=== PATIENT | male | born 1965 | race Caucasian/White ===

== ENCOUNTER → 2019-05-05 06:03 | Outpatient (CLI) | payer OTHER, SELFPAY ==
[2019-03-20 14:39] VITALS: BMI 28.7
[2019-05-05 07:37] LABS: AST(SGOT) 22 U/L (15-37); Alanine Aminotransfer ALT/SGPT 39 U/L (16-61); Albumin, Serum 4.2 g/dL (3.2-5.0); Alkaline Phosphatase 97 U/L (45-117); Anion Gap 8 (5-15); BUN 18 mg/dL (7-18); BUN/Creat Ratio 15.4 RATIO (10-20); Bilirubin, Direct 0.23 mg/dL (0.00-0.30); Calcium,Total 9.2 mg/dL (8.5-10.1); Chloride 104 mmol/L (98-107); Cholesterol 156 mg/dL (200); Creatinine, Serum 1.17 mg/dL (0.70-1.30); EST Glomerular Filtration Rate 69 mL/min (>60); Est Glom Filt Rate - Afr Amer 84 mL/min (>60); Globulin 3.2 g/dL (2.2-4.2); Glucose 90 mg/dL (74-106); High Density Lipoprotein 50 mg/dL; Potassium 4.1 mmol/L (3.5-5.1); Protein, Total 7.4 g/dL (6.4-8.2); Sodium Level 142 mmol/L (136-145); Triglycerides 168 mg/dL; Very Low Density Lipoprotein 34 mg/dL (5-40)
== END ==
PROVIDERS: Referring Provider Internal Medicine Cardiovascular Disease; Visit Provider Internal Medicine Cardiovascular Disease
DX: E78.2 Mixed hyperlipidemia (principal)
CPT/HCPCS: 36415; 80048; 80061; 80076

== ENCOUNTER → 2020-08-25 06:44 | Outpatient (CLI) | payer OTHER, SELFPAY ==
[2020-08-06 15:32] VITALS: BMI 28.4
--- NOTE | 2020-08-25 06:49 | ECHOCS_ITS ---
Procedure This was a 2D Doppler, Color Flow transthoracic echocardiogram. The study was technically difficult. Contrast injection was performed. Exam performed in department. Left Ventricle Based upon the 2D echocardiographic and contrast enhanced images obtained there appears to be grossly normal left ventricular size, wall motion, and systolic function. The estimated ejection fraction is 55 %. Transmitral doppler flow suggestive of impaired relaxation of left ventricle. Right Ventricle Normal RV size. Normal systolic function. Atria Normal left atrium. Normal right atrium. No doppler evidence for ASD. Mitral Valve There is no mitral annular calcification. Normal mitral valve. Tricuspid Valve Normal tricuspid valve. Aortic Valve Trisinus/trileaflet aortic valve. Normal aortic valve. Trivial aortic valve insufficiency. Pulmonic Valve The pulmonic valve is not well visualized. Great Vessels Mildly dilated aortic root. Pericardium/Pleural No pericardial effusion. Medication Diluted definity 2ml given slow IV push to enhance endocardial definition. MMode/2D Measurements & Calculations RVDd: 3.5 cm Ao root diam: 4.4 cm LAV(MOD-bp): 37.4 ml LAV(MOD-bp) Indexed: 17.5 ml/m2 LAV(MOD-sp2): 33.9 ml LAV(MOD-sp4): 37.6 ml LA dimension(2D): 3.5 cm LA A4 area: 15.0 cm2 RA A4 area: 14.1 cm2 Doppler Measurements & Calculations MV E max mike: 41.1 cm/sec Lat Peak E' Mike: 7.0 cm/sec Med Peak E' Mike: 5.6 cm/sec MV A max mike: 76.2 cm/sec E/E' lat: 5.8 E/E' med: 7.4 MV E/A: 0.54 Ao V2 max: 114.3 cm/sec LV V1 max: 95.1 cm/sec PA V2 max: 81.4 cm/sec Ao max P.2 mmHg LV V1 max P.6 mmHg Ao V2 mean: 83.2 cm/sec Ao mean P.0 mmHg Ao V2 VTI: 22.0 cm Interpretation Summary The study was technically difficult. Contrast injection was performed. Based upon the 2D echocardiographic and contrast enhanced images obtained there appears to be grossly normal left ventricular size, wall motion, and systolic function. The estimated ejection fraction is 55 %. Trivial aortic valve insufficiency. Mildly dilated aortic root. Transmitral doppler flow suggestive of impaired relaxation of left ventricle Ordering Physician: Rhys Moody Referring Physician: Rhys Moody
--- NOTE | 2020-08-25 09:35 | STRESSREP_ITS ---
Stress Test Report Date: 08-25-2020 Procedure: Exercise tolerance test/imaging study Indications: Chest pain; CAD; PCI Consent: Per the patient Procedure: The patient exercised on a Oscar protocol for 11 minutes completing Stage III and 2 minutes of Stage IV achieving a peak heart rate of 162 bpm (97% predicted maximal heart rate) with a peak blood pressure 166/74 mmHg and a peak MET capacity of 13 METs. The baseline ECG demonstrated normal sinus rhythm. The peak exercise ECG demonstrated no obvious ECG changes. There was a rare PVC during recovery. The functional capacity was considered good. There was no complaint of chest discomfort during exercise or recovery. The examination was discontinued secondary to dyspnea. Impression: 1. Technically adequate (percent predicted maximal heart rate greater than 85%) exercise tolerance test 2. Peak exercise ECG with no obvious ECG changes 3. There was a rare PVC during recovery 4. Nuclear images pending Myocardial perfusion imaging study: Technique: The patient was injected with 14.1 mCi of technetium 99m Cardiolite and subsequently rest SPECT Cardiolite nuclear imaging was obtained in the horizontal long, vertical long, and short axis views. The patient exercised on a Oscar protocol for 11 minutes completing Stage III and 2 minutes of Stage IV achieving a peak heart rate of 162 bpm (97% predicted maximal heart rate) with a peak blood pressure 166/74 mmHg and a peak MET capacity of 13 METs. The patient was injected with 43.9 mCi of technetium 99m Cardiolite and subsequently stress SPECT Cardiolite nuclear imaging was obtained in the horizontal long, vertical long, and short axis views. A gated Cardiolite study at peak stress was obtained. Interpretation: Rest and stress SPECT Cardiolite nuclear imaging status post realignment, normalization, and attenuation correction, demonstrates the appearance at rest of subtle diminished tracer uptake near the apical segments which appear to be less prominent and/or normalize following stress. There is end systolic thickening and brightening. The gated Cardiolite study demonstrates myocardial thickening and inward wall motion. The reported LVEF is 66%. Impression: 1. Rest and stress SPECT Cardiolite nuclear imaging demonstrate myocardial perfusion changes compatible with the effects of physiologic apical thinning and/or shifting soft tissue attenuation/artifact with no myocardial perfusion changes considered diagnostic for associated stress-induced myocardial ischemia. 2. The gated Cardiolite study reports an LVEF of 66%. This note was generated with [employer] software. It may contain incorrect words, spelling, and punctuation that were not noted in checking the note before signing.
== END ==
PROVIDERS: Referring Provider Internal Medicine Cardiovascular Disease; Visit Provider Internal Medicine Cardiovascular Disease
DX: R07.9 Chest pain, unspecified (principal); I25.10 Atherosclerotic heart disease of native coronary artery without angina pectoris; I10 Essential (primary) hypertension; E78.2 Mixed hyperlipidemia; Z95.5 Presence of coronary angioplasty implant and graft
CPT/HCPCS: 78452; 93017; 93306; A9500; Q9957; A4216; C8929

== ENCOUNTER → 2020-09-02 12:43 | Outpatient (CLI) | payer OTHER, SELFPAY ==
[2020-08-06 15:32] VITALS: BMI 28.4
--- NOTE | 2020-09-02 12:48 | CT_ITS ---
STUDY: CT CHEST WITH CONTRAST REASON FOR EXAM: Male, 55 years old. DILATED AORTIC ROOT, F/U FROM STRESS TEST RADIATION DOSAGE (If Supplied By Facility): CTDIvol = ( 13.86 ) mGy, DLP = ( 522.20 ) mGycm TECHNIQUE: Transaxial imaging was performed following intravenous administration of IV 100ML ISOVUE 300. Multiplanar coronal and sagittal images were reformatted. Individualized dose optimization techniques were used for this CT. COMPARISON: None. FINDINGS: The lungs are normal. There is no demonstrated pleural abnormality. Normal heart and pericardium. Normal mediastinum. Normal hilar regions. Normal enhanced pulmonary arteries. There is dilatation of the aortic root with a transverse dimension of 46.8 mm. There are multi-level degenerative changes of the thoracic spine. Fatty infiltration of the liver. CT/Chest WITH Contrast IMPRESSION: Dilatation of the aortic root with a transverse dimension of 46.8 mm. Electronically Signed: Talha Chavez, at 14:15 EST , Service support ,
== END ==
PROVIDERS: Visit Provider Internal Medicine Cardiovascular Disease
DX: I77.810 Thoracic aortic ectasia (principal); I25.10 Atherosclerotic heart disease of native coronary artery without angina pectoris; I10 Essential (primary) hypertension; E78.2 Mixed hyperlipidemia; Z95.5 Presence of coronary angioplasty implant and graft
CPT/HCPCS: 71260; Q9967

== ENCOUNTER → 2021-01-08 08:05 | Outpatient (CLI) | payer OTHER, SELFPAY ==
[2020-08-06 15:32] VITALS: BMI 28.4
[2021-01-08 08:54] LABS: AST(SGOT) 16 U/L (15-37); Alanine Aminotransfer ALT/SGPT 30 U/L (16-61); Albumin, Serum 3.7 g/dL (3.2-5.0); Alkaline Phosphatase 87 U/L (45-117); Anion Gap 6 (5-15); BUN 20 mg/dL (7-18); BUN/Creat Ratio 18.9 RATIO (10-20); Bilirubin, Direct 0.21 mg/dL (0.00-0.30); Calcium,Total 8.9 mg/dL (8.5-10.1); Chloride 107 mmol/L (98-107); Cholesterol 136 mg/dL (200); Creatinine, Serum 1.06 mg/dL (0.70-1.30); EST Glomerular Filtration Rate 77 mL/min (>60); Est Glom Filt Rate - Afr Amer 93 mL/min (>60); Globulin 3.1 g/dL (2.2-4.2); Glucose 104 mg/dL (74-106); High Density Lipoprotein 51 mg/dL; PSA,Total - Annual Screen 0.38 ng/mL (0.00-4.00); Potassium 4.3 mmol/L (3.5-5.1); Protein, Total 6.8 g/dL (6.4-8.2); Sodium Level 141 mmol/L (136-145); Triglycerides 184 mg/dL; Very Low Density Lipoprotein 37 mg/dL (5-40)
== END ==
DX: I25.10 Atherosclerotic heart disease of native coronary artery without angina pectoris (principal); E78.2 Mixed hyperlipidemia; Z12.5 Encounter for screening for malignant neoplasm of prostate
CPT/HCPCS: 36415; 80048; 80061; 80076; 84153; G0103

== ENCOUNTER → 2021-02-16 07:42 | Outpatient (CLI) | payer OTHER, SELFPAY ==
[2021-02-02 15:58] VITALS: BMI 28.4
--- NOTE | 2021-02-16 07:43 | AAAS_ITS ---
Reason For Study: Aortic Root Dilation Aorta Measurements Aorta Doppler Measurements Proximal aorta measures1.58 x 1.56cm. in cross- Peak systolic flow velocities within the proximal sectional axis. aorta measure 69.5 cm/sec. Proximal aorta measures1.63cm. in longitudinal Peak systolic flow velocities within the mid aorta axis. measure 66.7 cm/sec. Mid aorta measures1.72 x 1.72cm. in cross- Peak systolic flow velocities within the distal sectional axis. aorta measure 76.9 cm/sec. Mid aorta measures1.75cm. in longitudinal axis. Distal aorta measures1.46 x 1.41cm. in cross- sectional axis. Distal aorta measures1.46cm. in longitudinal axis. Left Iliac Artery Left iliac artery measures 1.08 x 1.09 cm. in the cross-sectional axis. Left iliac artery measures 1.08 cm. in the longitudinal axis. Peak systolic velocity in the left iliac artery measures 84.2 cm/sec. Right Iliac Artery Right iliac artery measures 0.98 cm. in the longitudinal axis. Right iliac artery measures 0.98 x 0.96 cm. in the cross-sectional axis. Peak systolic velocity in the right iliac artery measures 75.7 cm/sec. Procedure Aorta IVC Iliac vasculature or bypass grafts 04772. The exam was diagnostic. Exam performed in department. VL/AAA Screening Interpretation Summary Maximal abdominal aortic dimensions in the mid abdominal aorta measuring 1.72 x 1.72 cm in diameter. Aortic Doppler flow velocities are normal Left common iliac is normal at 1.08 x 1.09 cm in diameter Right common iliac is normal at 0.98 x 0.96 cm in diameter. Bilateral common iliac Doppler flow velocities are normal Ordering Physician: Jony Orosco Referring Physician: Adarsh Smith Performed By: Vanessa Sheikh RVT and Student
--- NOTE | 2021-02-16 07:43 | CT_ITS ---
STUDY: CT CHEST WITH CONTRAST REASON FOR EXAM: Male, 55 years old. Aortic root dilation RADIATION DOSAGE (If Supplied By Facility): CTDIvol = ( 15.26 ) mGy, DLP = ( 583.46 ) mGycm TECHNIQUE: Transaxial imaging was performed following intravenous administration of IV 100mL Isovue-300. Multiplanar coronal and sagittal images were reformatted. Individualized dose optimization techniques were used for this CT. COMPARISON: Comparison is made with prior study dated 09/02/2020. FINDINGS: The lungs are normal. There is no demonstrated pleural abnormality. There are calcifications of the coronary arteries. Normal mediastinum. Normal hilar regions. Normal enhanced pulmonary arteries. Once again, there is dilatation of the aortic root of the ascending thoracic aorta with a transverse dimension of 46 mm. This is unchanged. There are degenerative changes of the thoracic spine. There is no demonstrated abnormality of the visualized upper abdomen. CT/Chest WITH Contrast IMPRESSION: Stable examination. Electronically Signed: Talha Chavez MD at 8:53 EDT , Service support ,
== END ==
PROVIDERS: Referring Provider Nurse Practitioner Family; Visit Provider Nurse Practitioner Family
DX: I77.810 Thoracic aortic ectasia (principal); I10 Essential (primary) hypertension; E78.2 Mixed hyperlipidemia; I25.10 Atherosclerotic heart disease of native coronary artery without angina pectoris; Z95.5 Presence of coronary angioplasty implant and graft
CPT/HCPCS: 71260; 76706; Q9967

== ENCOUNTER → 2021-08-15 09:21 | Outpatient (CLI) | payer OTHER, SELFPAY ==
[2021-08-15 10:41] LABS: AST(SGOT) 22 U/L (15-37); Alanine Aminotransfer ALT/SGPT 49 U/L (16-61); Albumin, Serum 3.9 g/dL (3.2-5.0); Alkaline Phosphatase 92 U/L (45-117); Bilirubin, Direct 0.16 mg/dL (0.00-0.30); Cholesterol 154 mg/dL (200); Globulin 3.3 g/dL (2.2-4.2); High Density Lipoprotein 48 mg/dL; Protein, Total 7.2 g/dL (6.4-8.2); Triglycerides 194 mg/dL; Very Low Density Lipoprotein 39 mg/dL (5-40)
== END ==
PROVIDERS: Referring Provider Internal Medicine Cardiovascular Disease; Visit Provider Internal Medicine Cardiovascular Disease
DX: E78.00 Pure hypercholesterolemia, unspecified (principal)
CPT/HCPCS: 36415; 80061; 80076

== ENCOUNTER 2021-11-04 07:44 | Emergency (ER) | payer OTHER, SELFPAY ==
[2021-11-04 07:45] VITALS: BP 134/95; PULSE 91; RESP 18; TEMP 36.6; O2SAT 98; BMI 29.2
--- NOTE | 2021-11-04 08:18 | CT_ITS ---
STUDY: CT ABDOMEN AND PELVIS WITHOUT CONTRAST REASON FOR EXAM: Male, 56 years old. Bilateral flank pain and burning sensation with urination. RADIATION DOSAGE (If Supplied By Facility): CTDIvol = ( 11.25 ) mGy, DLP = ( 624.04 ) mGycm TECHNIQUE: Transaxial images were obtained from the dome of the diaphragm to the symphysis pubis without oral contrast, and without intravenous contrast. Sagittal and coronal images were reconstructed. Individualized dose optimization techniques were used for this CT. COMPARISON: None. FINDINGS: The visualized lung bases are unremarkable. Coronary artery stents noted. Normal liver. Normal gallbladder and extrahepatic biliary system. Normal spleen. Normal pancreas. Normal bilateral adrenal glands. Punctate nonobstructing calculi of the right kidney. No hydronephrosis or ureteral calculi. Normal visualized stomach. Normal small intestine. Normal colon. There is non-visualization of the appendix. Scattered atherosclerosis of the abdominal aorta. Normal inferior vena cava. Normal retroperitoneum. Normal urinary bladder. There are prostatic calcifications. Normal abdominal wall. Normal osseous structures. CT/Abdomen/Pelvis without Cont IMPRESSION: Punctate right nephrolithiasis without hydronephrosis/obstruction. Electronically Signed: Owen Unger MD ([place]) at 8:53 EDT Reading Location ID and State: [place] , Service support ,
--- NOTE | 2021-11-04 08:19 | EDS_ITS ---
HPI History of Present Illness Chief Complaint: Flank Pain Narrative Narrative: Patient presents with 5-day history of some dysuria, fevers, and bilateral flank pain. He does have a history of urethral strictures. He also has a history of kidney stones. He has some intermittent suprapubic abdominal pain. He also has some flank pain. No upper abdominal pain. No cough or congestion. He has noticed some loose stools over the past week but no more than 1 or 2 episodes per day of bowel movements. No nausea or vomiting. [facility] Medical History (Updated 11/04/21 @ 10:[address] Rhys Martinez MD) Atherosclerotic heart disease of [place] coronary artery without angina pectoris Degenerative disc disease Essential hypertension Hiatal hernia Mixed hyperlipidemia Presence of stent in coronary artery (~10/24/18) Schatzki's ring Home Medications aspirin 81 mg tablet,delayed release 81 mg PO DAILY 03/19/19 [History Last Taken 11/03/21] atorvastatin 40 mg tablet 40 mg PO DAILY #90 tab 11/22/20 [Rx Last Taken 11/03/21] metoprolol succinate 50 mg tablet,extended release 24 hr 50 mg PO DAILY #90 tab 11/22/20 [Rx Last Taken 11/03/21] lisinopril 10 mg tablet 10 mg PO DAILY #90 tab 02/18/21 [Rx Last Taken 11/03/21] oxycodone-acetaminophen [Percocet] 1 tab PO Q8H PRN 3 Days #10 tab 11/04/21 [Rx Last Taken Unknown] sulfamethoxazole-trimethoprim [Bactrim DS] 1 tab PO BID #14 tab 11/04/21 [Rx Last Taken Unknown] Allergy/AdvReac Type Severity Reaction Status Date / Time No Known Allergies Allergy Verified 11/04/21 07:47 Family History Grandmother Heart disease Uncle Heart disease Grandfather CVA (cerebral vascular accident) Father Hypertension CVA (cerebral vascular accident) Grandmother CHF (congestive heart failure) Surgical History History of appendectomy History of discectomy History of tonsillectomy Presence of coronary angioplasty implant and graft (~10/24/18) Social History Smoking Status: Former smoker alcohol intake: never substance use type: does not use caffeine: Yes Type: tea Number of servings: 1 ROS ROS ED ROS Narrative Past medical history: Reviewed, consistent with hypertension, hyper lipidemia, history of coronary artery disease. Urethral strictures. Medications: Reviewed Social history: Noncontributory Review of systems: All systems negative except as indicated General: Fevers over the past week Eyes: No visual changes ENT: No upper airway congestion, normal voice Neck: No neck pain Cardiovascular: No chest pain Respiratory: No shortness of breath or cough Gastrointestinal: Intermittent suprapubic pain. Genitourinary: As in HPI Musculoskeletal: Denies myalgias no difficulty with ambulation Skin: No rash Neurological: No memory loss, confusion or any focal weakness Psych: No recent behavioral changes Hematologic: No easy bleeding or easy bruising EXAM Physical Exam Const Vital Signs: 11/04/21 07:45 Temperature 97.8 F Temperature Source Temporal Pulse Rate 91 Respiratory Rate 18 Blood Pressure 134/95 H Blood Pressure Mean 108 Pulse Ox 98 Oxygen Delivery Method Room Air MDM MDM MDM Narrative Medical decision making narrative: Patient has a work-up consistent with a very small kidney stone that is obstructive. At this time the urinalysis is unremarkable white count is 10. He has normal vitals, I am unsure about the cause of his fever over the past week however that seems to have improved, he did seem to have some GI symptoms so he may have had a gastroenteritis regardless he has significantly improved. To be cautious I will start antibiotics especially there is obstructive uropathy. I will refer to urology. If anything changes the patient is to return. Lab Data Labs: Laboratory Results - last 24 hr 11/04/21 11/04/21 11/04/21 08:15 08:15 09:10 WBC 10.7 RBC 4.79 Hgb 15.5 Hct 45.0 MCV 93.9 MCH 32.4 H MCHC 34.4 RDW Std Deviation 42.6 RDW Coeff of [place] 12.3 Plt Count 200 MPV 9.4 Immature Gran % (Auto) 0.400 Neut % (Auto) 93.5 H Lymph % (Auto) 1.9 L [place] % (Auto) 3.1 Eos % (Auto) 0.8 Baso % (Auto) 0.3 Absolute Neuts (auto) 10.0 H Absolute Lymphs (auto) 0.20 L Nucleated RBC % 0 Sodium 138 Potassium 4.6 Chloride 107 Carbon Dioxide 29.0 Anion Gap 2 L BUN 25 H Creatinine 1.20 Estim Creat Clear Calc 74.08 Est GFR (MDRD) Af Amer 81 Est GFR (MDRD) Non-Af 67 BUN/Creatinine Ratio 20.8 H Glucose 132 H Calcium 8.9 Total Bilirubin 1.00 AST 30 ALT 75 H Alkaline Phosphatase 106 Total Protein 7.3 Albumin 3.9 Globulin 3.4 Albumin/Globulin Ratio 1.1 Urine Color Yellow Urine Clarity Clear Urine pH 5.0 Ur Specific [place] 1.020 Urine Protein 15 H Urine Glucose (UA) Normal Urine Ketones Negative Urine Occult Blood Negative Urine Nitrite Negative Urine Bilirubin Negative Urine Urobilinogen 1 H Ur Leukocyte Esterase Negative Urine RBC 0 SEEN Urine WBC 0 SEEN Ur Squamous Epith Cells 0-5 SEEN Urine Bacteria 0 SEEN Urine Mucus 0 SEEN Radiography Diagnostic Testing: Clinical Impression(s) from Imaging Studies Abdomen/Pelvis CT 11/04/21 08:18 IMPRESSION: Punctate right nephrolithiasis without hydronephrosis/obstruction. Electronically Signed: Owen Unger MD ([place]) at 8:53 EDT Reading Location ID and State: [address] [place] [address] , Service support , Discharge Plan Triage Chief Complaint: Flank Pain ED Provider: Rhys Martinez Dx/Rx/DC Orders Clinical Impression: Kidney calculi Instructions: Treating Kidney Stones ... Prescriptions: New sulfamethoxazole-trimethoprim [Bactrim DS] 800-160 mg tablet 1 tab PO BID Qty: 14 RF: 0 oxycodone-acetaminophen [Percocet] 5-325 mg tablet 1 tab PO Q8H PRN (Reason: pain) 3 Days Qty: 10 RF: 0 No Action aspirin [Adult Low Dose Aspirin] 81 mg tablet,delayed release (DR/EC) 81 mg PO DAILY RF: 0 atorvastatin 40 mg tablet 40 mg PO DAILY Qty: 90 RF: 4 metoprolol succinate 50 mg tablet extended release 24 hr 50 mg PO DAILY Qty: 90 RF: 4 lisinopril 10 mg tablet 10 mg PO DAILY Qty: 90 RF: 4 Primary Care Provider: Mahamed Smith Referrals: Mahamed Smith MD [Primary Care Provider] - 2 Days Trevon Ramirez MD [STAFF PHYSICIAN] - 2 Days Disposition Disposition: Home, Self Care
[2021-11-04] MEDS: 0.9% Normal Saline 1,000 ML 1000 ML IV (08:24)
[2021-11-04] MEDS: Ketorolac 15 MG/ML Vial IV (08:24)
[2021-11-04 08:26] LABS: Basophil# 0.03 X10^3/uL; Basophil% 0.3 % (0-1); Eosinophil# 0.08 X10^3/uL; Eosinophils% 0.8 % (0-5); Hemoglobin 15.5 g/dL (13.0-16.5); Lymphocyte % 1.9 % (19-41); Mean Corp Hgb Conc 34.4 g/dL (32-36); Mean Corpuscular Hgb 32.4 pg (27.0-32.0); Mean Corpuscular Volume 93.9 fL (80-94); Mean Platelet Vol. 9.4 fl (6.2-12.0); Monocyte# 0.33 X10^3/uL; Monocyte% 3.1 % (0-10); NRBC Flagged by Analyzer 0 % (0-5); Neutrophil # 9.97 X10^3/uL (2.7-7.7); Neutrophil % 93.5 % (47-70); POSITIVE DIFFERENTIAL YES; Platelet Count 200 K/mm3 (150-450); RBC Distribution Width CV 12.3 % (11.6-14.6); RBC Distribution Width SD 42.6 fl (35.1-43.9); Red Blood Count 4.79 M/mm3 (4.6-6.2); White Blood Count 10.7 K/mm3 (4.4-11.0)
[2021-11-04 08:29] LABS: Differential Indicated SCAN CRITERIA MET
[2021-11-04 08:47] LABS: ALB/GLOB Ratio 1.1 RATIO (0.9-2.4); AST(SGOT) 30 U/L (15-37); Alanine Aminotransfer ALT/SGPT 75 U/L (16-61); Albumin, Serum 3.9 g/dL (3.2-5.0); Alkaline Phosphatase 106 U/L (45-117); Anion Gap 2 (5-15); BUN 25 mg/dL (7-18); BUN/Creat Ratio 20.8 RATIO (10-20); Calcium,Total 8.9 mg/dL (8.5-10.1); Chloride 107 mmol/L (98-107); EST Glomerular Filtration Rate 67 mL/min (>60); Est Glom Filt Rate - Afr Amer 81 mL/min (>60); Estimated Creatinine Clearance 74.08 ml/min; Globulin 3.4 g/dL (2.2-4.2); Glucose 132 mg/dL (74-106); Potassium 4.6 mmol/L (3.5-5.1); Protein, Total 7.3 g/dL (6.4-8.2); Sodium Level 138 mmol/L (136-145)
[2021-11-04 09:23] LABS: Bacteria 0 SEEN /hpf (None Seen); Mucous, Urine 0 SEEN /hpf (<or=2+); Red Blood Cells-Urine 0 SEEN /hpf (0-5); White Blood Cells 0 SEEN /hpf (0-5)
[2021-11-04 09:24] LABS: Color, Urine Yellow (Yellow); Glucose, Dipstick Normal (Normal); Ketone-Dipstick Negative (Negative); Leukocyte Esterase-Dipstick Negative /ul (Negative); Nitrite-Dipstick Negative (Negative); Occult Blood-Urine Negative /ul (Negative); Protein-Dipstick 15 mg/dl (Negative); Urine Bilirubin Dipstick Negative (Negative); Urine Clarity Clear (Clear); Urine Urobilinogen 1 mg/dl (Normal)
[2021-11-04 09:38] LABS: Squamous Epithelial Cells - UA 0-5 SEEN /hpf (0-5)
[2021-11-04 11:08] VITALS: BP 137/71; PULSE 80; RESP 16; O2SAT 98
== END 2021-11-04 11:09 | disposition home or self-care (01) ==
PROVIDERS: Emergency Provider Emergency Medicine; Visit Provider Emergency Medicine
DX: N20.0 Calculus of kidney (principal); I25.10 Atherosclerotic heart disease of native coronary artery without angina pectoris; I10 Essential (primary) hypertension; E78.2 Mixed hyperlipidemia; Z79.82 Long term (current) use of aspirin; Z79.899 Other long term (current) drug therapy; Z87.442 Personal history of urinary calculi; Z87.891 Personal history of nicotine dependence; Z95.5 Presence of coronary angioplasty implant and graft
CPT/HCPCS: 74176; 80053; 81001; 85025; 96361; 96374; 99284; J7030; A4216

== ENCOUNTER → 2022-01-20 | Outpatient (CLI) | payer OTHER, SELFPAY ==
--- NOTE | 2022-01-20 17:52 | CT_ITS ---
STUDY: CTA CHEST REASON FOR EXAM: Male, 56 years old. Chest and back pain, possible aneurysm RADIATION DOSAGE (If Supplied By Facility): CTDIvol = ( 16.84 ) mGy, DLP = ( 479.70 ) mGycm TECHNIQUE: The examination was performed with the intravenous administration of IV 100mL Isovue-370. Post-processing of the angiographic images was performed, with multiplanar reformation and 3D reconstruction. Individualized dose optimization techniques were used for this CT. COMPARISON: None. FINDINGS: Normal enhancement of the main pulmonary artery and right and left pulmonary arteries. Normal enhancement of the bilateral peripheral pulmonary arteries. There is no demonstrated pulmonary embolism. There is aneurysmal dilatation of the ascending aorta. The transverse diameter of the ascending aorta measures 48.3 mm''s. There is no demonstrated aortic dissection. Normal heart and pericardium. There are calcifications of the coronary arteries. Normal mediastinum. Normal hilar regions. There is peribronchial thickening. The lungs are well expanded. Normal pulmonary parenchyma. Normal pleura. Normal chest wall structures. Mild degenerative changes throughout the thoracic spine. Normal visualized upper abdomen. CT/CTA Chest W/WO Contrast IMPRESSION: No demonstrated PE, or acute pulmonary process Aneurysmal dilatation of the ascending thoracic aorta at 4.8 cm. No evidence of dissection, or suspicious periaortic fluid Calcified coronary vessels Degenerative bony changes Electronically Signed: Juan Garay MD at 10:58 EDT ,
[2022-01-20 18:05] LABS: CREATININE FINGERSTICK < 0.9 mg/dL (0.70-1.30); EGFR FINGERSTICK > 60.0000 mL/min (>60)
== END | disposition home or self-care (01) ==
LOC: CT 17:49
PROVIDERS: Visit Provider Internal Medicine Cardiovascular Disease
DX: I77.810 Thoracic aortic ectasia (principal)
CPT/HCPCS: 71275; Q9967; A4216

== ENCOUNTER 2022-11-07 15:28 | Emergency (ER) | payer OTHER, SELFPAY ==
[2022-11-07 15:29] VITALS: BP 141/96; PULSE 112; RESP 18; TEMP 38; O2SAT 94; BMI 29.2
[2022-11-07 15:45] VITALS: BP 143/83; PULSE 104; RESP 18; TEMP 38; O2SAT 94
--- NOTE | 2022-11-07 15:49 | EX.ED.DYSGE1 ---
HPI History of Present Illness Chief Complaint: Fever Detail of Chief Complaint: Fever Informant: patient Narrative Narrative: Patient presents to the emergency department with complaint of a fever that started this morning. Patient states that initially he was chilled and so he checked his temperature and it was 101. Patient concerned because he had thoracic aortic aneurysm repair less than a week ago. Patient's procedure was done at the [facility]. Patient denies cough or sore throat. He denies vomiting or diarrhea. He denies rashes. He denies any drainage from his incision. Patient states he had an echocardiogram done yesterday and a CT scan of the chest today before and as far as he knows no significant abnormalities noted. Patient called his overhead irrigator office today and was instructed to come to the ER to be evaluated. Patient denies any urinary symptoms. [facility] Medical History (Updated 11/07/22 @ 19:[address] Holland Webster, ) Atherosclerotic heart disease of circle coronary artery without angina pectoris Degenerative disc disease Essential hypertension Hiatal hernia History of kidney stones Mixed hyperlipidemia Presence of stent in coronary artery (~10/24/18) Schatzki's ring Home Medications aspirin 81 mg tablet,delayed release (Adult Low Dose Aspirin) 81 mg PO DAILY 03/19/19 [History Last Taken 11/03/21] atorvastatin 40 mg tablet 40 mg PO DAILY #90 tabs 02/21/22 [Rx Last Taken Unknown] losartan 50 mg tablet 50 mg PO DAILY 08/08/22 [History Last Taken Unknown] clopidogrel 75 mg tablet 75 mg PO DAILY 11/07/22 [History Last Taken Unknown] metoprolol succinate 100 mg tablet,extended release 24 hr 100 mg PO DAILY 11/07/22 [History Last Taken Unknown] sennosides 8.6 mg-docusate sodium 50 mg tablet (Senna-Time S) 1 tab-cap PO BID PRN Constipation 11/07/22 [History Last Taken Unknown] Allergy/AdvReac Type Severity Reaction Status Date / Time No Known Allergies Allergy Verified 11/07/22 15:30 Family History Grandmother Heart disease Uncle Heart disease Grandfather CVA (cerebral vascular accident) Father Hypertension CVA (cerebral vascular accident) Grandmother CHF (congestive heart failure) Surgical History (Updated 03/21/23 @ 14:53 by Cassie Perez) History of appendectomy History of discectomy History of tonsillectomy Presence of coronary angioplasty implant and graft (~10/24/18) Status post aorta repair (~11/02/22) Social History Smoking Status: Never smoker alcohol intake: current alcohol intake frequency: holidays/special occasions only substance use type: does not use caffeine: Yes Type: carbonated beverages Number of servings: 1 and tea Number of servings: 1 ROS ROS ED Review of Systems ROS Unobtainable: other Constitutional Constitutional ED: Reports chills, fever(s) and lethargy; Denies sweats or weight loss Eyes Eyes: Denies blurry vision, change in vision or diplopia ENT ENT ED: Denies rhinorrhea or sore throat Cardiovascular Cardiovascular: Denies chest pain, orthopnea or racing heartbeat Respiratory/Chest Respiratory/Chest: Denies cough, dyspnea, dyspnea on exertion, orthopnea or sputum Gastrointestinal Gastrointestinal: Denies abdominal pain, diarrhea, nausea or vomiting Genitourinary Genitourinary ED: Denies dysuria, hematuria or urinary frequency Musculoskeletal Musculoskeletal: Denies arthralgias, back pain, myalgias or neck pain Integumentary Denies abscess, Abrasions or rash Neurologic Neurologic: Denies headache(s) or weakness Psychiatric Psychiatric: Denies anxiety, depression or suicidal thoughts Endocrine Endocrinology: Denies polydipsia, polyphagia or polyuria Hematologic/Lymphatic Hematologic/Lymphatic: Denies easy bleeding, easy bruising or lymphadenopathy Allergic/Immunologic Allergic/Immunologic ED: Denies mouth swelling, tongue swelling or urticaria EXAM Physical Exam Const Vital Signs: 11/07/22 15:29 11/07/22 15:45 11/07/22 15:45 Temperature 100.4 F H 100.4 F H Temperature Source Oral Oral Pulse Rate 112 H 104 H Respiratory Rate 18 18 Respiratory Effort Normal Non-Labored Respiratory Pattern Normal Blood Pressure 141/96 H 143/83 H Blood Pressure Mean 111 103 Pulse Ox 94 94 Oxygen Delivery Method Room Air Room Air 11/07/22 16:57 11/07/22 18:00 11/07/22 19:00 Temperature 98.4 F 98.4 F 98.3 F Temperature Source Oral Oral Oral Pulse Rate 94 85 87 Respiratory Rate 18 18 18 Respiratory Effort Respiratory Pattern Blood Pressure 134/82 H 151/88 H 131/87 H Blood Pressure Mean 99 109 101 Pulse Ox 96 95 97 Oxygen Delivery Method Room Air Room Air Room Air 11/07/22 20:08 Temperature Temperature Source Pulse Rate 90 Respiratory Rate 18 Respiratory Effort Respiratory Pattern Blood Pressure 139/77 H Blood Pressure Mean Pulse Ox 100 Oxygen Delivery Method Positive well nourished and well developed General Appearance ED: well developed and NAD HEENT Reports TM's clear and moist mucous membranes normocephalic and atraumatic; Negative for trauma or tenderness Tympanic Membrane ED: Yes TM's clear Eyes PERRL and EOMs intact bilaterally General Eye ED: Negative for pale conjunctiva or scleral icterus Neck no lymphadenopathy, supple and no JVD General: Negative for tenderness Chest Wall inspection of chest normal Chest Narrative: Has a fresh incision over the anterior chest that appears to be healing well. No significant erythema noted. There is no drainage and no dehiscence. Chest: Negative for tenderness Resp normal respiratory effort and clear to auscultation bilaterally Resp Narrative: Few rales in both bases. No significant tachypnea. No accessory muscle use or retractions. Effort and Inspection: Negative for respiratory distress or pain with movement Auscultation: Negative for rhonchi, wheezes or diminished lung sounds Cardio regular rhythm, S1 normal heart sound, S2 normal heart sound and no murmurs Rate: tachycardic Peripheral Pulses: pulses 2+ throughout GI normal to inspection, nondistended, normoactive bowel sounds, soft to palpation, non-tender, non-distended and no masses Back/Spine no CVA tenderness and no thoracic nor lumbar tenderness Extremity normal to inspection General Extremety ED: Negative for edema General Extremity: Negative for edema Neuro oriented x3, CN's II-XII intact bilaterally, no sensory deficits noted and gait normal Sensorium / Orientation: awake, alert, oriented to person, oriented to place and oriented to time Motor Exam: strength 5/5 throughout and strength abnormal Psych mental status grossly normal Skin no rashes or lesions noted and no wounds MDM MDM MDM Narrative Medical decision making narrative: Presents with fever and chills and no other symptoms. Recently postop on the for a thoracic aortic aneurysm repair. Patient had blood cultures on arrival and IV line established. CBC with differential showed a normal white count of 9.6. Chemistries were unremarkable. Lactate was normal. Urinalysis was normal. Flu and COVID testing was negative. Chest x-ray unremarkable. I attempted to contact his surgeon of record at [facility] Dr. Pernell Marion and after not hearing back for over an hour patient is demanding to be discharged to home as he no longer wants to be here. I discussed case with Dr. Tano Mishra who is patient's local overhead irrigator. I advised patient to follow-up with his surgeon at the earliest possible time. We will advise him if his culture results come back positive. It is possible he may have a viral infection developing as well. No other source known at this time for his fever. He did have a cardiac ultrasound yesterday. I do not hear any murmurs and feels the possibility of valve vegetations is low. Lab Data Labs: Laboratory Results - last 24 hr 11/07/22 11/07/22 11/07/22 16:18 16:24 16:24 WBC 9.6 RBC 3.61 L Hgb 11.2 L Hct 33.4 L MCV 92.5 MCH 31.0 MCHC 33.5 RDW Std Deviation 42.5 RDW Coeff of [place] 12.6 Plt Count 252 MPV 9.4 Immature Gran % (Auto) 0.500 Neut % (Auto) 76.5 H Lymph % (Auto) 11.9 L [place] % (Auto) 10.1 H Eos % (Auto) 0.7 Baso % (Auto) 0.3 Absolute Neuts (auto) 7.3 Absolute Lymphs (auto) 1.14 Nucleated RBC % 0 Sodium 140 Potassium 3.5 Chloride 108 H Carbon Dioxide 25.0 Anion Gap 7 BUN 14 Creatinine 0.91 Estim Creat Clear Calc 96.54 Est GFR (MDRD) Af Amer 111 Est GFR (MDRD) Non-Af 92 BUN/Creatinine Ratio 15.4 Glucose 115 H Lactic Acid Calcium 8.7 Total Bilirubin 0.80 AST 41 H ALT 58 Alkaline Phosphatase 82 Total Protein 6.7 Albumin 2.8 L Globulin 3.9 Albumin/Globulin Ratio 0.7 L Urine Color Yellow Urine Clarity Clear Urine pH 8.0 Ur Specific [place] 1.015 Urine Protein 15 H Urine Glucose (UA) Normal Urine Ketones Negative Urine Occult Blood Negative Urine Nitrite Negative Urine Bilirubin Negative Urine Urobilinogen 4 H Ur Leukocyte Esterase 25 H Urine RBC 0 SEEN Urine WBC 0-5 SEEN Ur Squamous Epith Cells 0 SEEN Urine Bacteria 0 SEEN Urine Mucus 0 SEEN 11/07/22 16:24 WBC RBC Hgb Hct MCV MCH MCHC RDW Std Deviation RDW Coeff of [place] Plt Count MPV Immature Gran % (Auto) Neut % (Auto) Lymph % (Auto) [place] % (Auto) Eos % (Auto) Baso % (Auto) Absolute Neuts (auto) Absolute Lymphs (auto) Nucleated RBC % Sodium Potassium Chloride Carbon Dioxide Anion Gap BUN Creatinine Estim Creat Clear Calc Est GFR (MDRD) Af Amer Est GFR (MDRD) Non-Af BUN/Creatinine Ratio Glucose Lactic Acid 1.0 Calcium Total Bilirubin AST ALT Alkaline Phosphatase Total Protein Albumin Globulin Albumin/Globulin Ratio Urine Color Urine Clarity Urine pH Ur Specific [place] Urine Protein Urine Glucose (UA) Urine Ketones Urine Occult Blood Urine Nitrite Urine Bilirubin Urine Urobilinogen Ur Leukocyte Esterase Urine RBC Urine WBC Ur Squamous Epith Cells Urine Bacteria Urine Mucus Radiography Diagnostic Testing: Clinical Impression(s) from Imaging Studies Chest X-Ray 11/07/22 16:30 IMPRESSION: Evidence of median sternotomy. There is no acute cardiopulmonary disease. Electronically Signed: Hardeep Roy DO at 16:45 EDT Reading Location ID and State: [address] [place] [address] Tel [phone], Service support , Discharge Plan Triage Chief Complaint: Fever ED Provider: Holland Webster Dx/Rx/DC Orders Clinical Impression: Fever, unknown origin Instructions: ED FUO Adult Prescriptions: No Action aspirin [Adult Low Dose Aspirin] 81 mg tablet,delayed release (DR/EC) 81 mg PO DAILY losartan 50 mg tablet 50 mg PO DAILY atorvastatin 40 mg tablet 40 mg PO DAILY Qty: 90 4RF clopidogrel 75 mg tablet 75 mg PO DAILY sennosides-docusate sodium [Senna-Time S] 8.6-50 mg tablet 1 tab-cap PO BID PRN (Reason: Constipation) metoprolol succinate 100 mg tablet extended release 24 hr 100 mg PO DAILY Primary Care Provider: Mahamed Smith Referrals: Mahamed Smith MD [Primary Care Provider] - Activity Restrictions/Additional Instructions: Follow-up with your surgeon at the earliest possible time. Disposition Disposition: Home, Self Care Discharge Date/Time: 11/07/22 20:09
[2022-11-07] MEDS: Acetaminophen 325 MG Tablet 650 MG PO (16:12)
[2022-11-07] MEDS: 0.9% Normal Saline 1,000 ML 150 ML IV (16:25)
--- NOTE | 2022-11-07 16:30 | RAD_ITS ---
STUDY: X-RAY CHEST REASON FOR EXAM: Male, 57 years old. Fever. History of open heart surgery 6 days ago. TECHNIQUE: Single AP portable view of the chest. COMPARISON: CTA of the chest, January 20, 2022. FINDINGS: The lungs are clear and expanded. There is no demonstrated pleural abnormality. Sternal cerclage wires and vascular clips are present from a prior sternotomy and coronary artery bypass graft procedure (CABG). The heart is normal in size. Normal mediastinum and eloy. Normal visualized pulmonary arteries. Normal visualized aortic arch and descending thoracic aorta. The thoracic spine is obscured by the mediastinum. There is evidence of cervical fusion. Normal visualized ribs, clavicles, and shoulders. There is no demonstrated abnormality of the visualized soft tissue structures of the upper abdomen. RAD/Chest 1 View (Portable) IMPRESSION: Evidence of median sternotomy. There is no acute cardiopulmonary disease. Electronically Signed: Hardeep Roy DO at 16:45 EDT ,
[2022-11-07 16:36] LABS: Bacteria 0 SEEN /hpf (None Seen); Mucous, Urine 0 SEEN /hpf (<or=2+); Red Blood Cells-Urine 0 SEEN /hpf (0-5); Squamous Epithelial Cells - UA 0 SEEN /hpf (0-5)
[2022-11-07 16:42] LABS: Absolute Lymphocyte Count 1.14 X10^3/uL (0.83-4.51); Absolute Neutrophil Count 7.3 X10^3/uL (2.0-7.7); Basophil# 0.03 X10^3/uL; Basophil% 0.3 % (0-1); Eosinophil# 0.07 X10^3/uL; Eosinophils% 0.7 % (0-5); Hematocrit 33.4 % (40-54); Hemoglobin 11.2 g/dL (13.0-16.5); Lymphocyte # 1.14 X10^3/ul (0.83-4.51); Lymphocyte % 11.9 % (19-41); Mean Corp Hgb Conc 33.5 g/dL (32-36); Mean Corpuscular Volume 92.5 fL (80-94); Mean Platelet Vol. 9.4 fl (6.2-12.0); Monocyte# 0.97 X10^3/uL; Monocyte% 10.1 % (0-10); NRBC Flagged by Analyzer 0 % (0-5); Neutrophil # 7.32 X10^3/uL (2.7-7.7); Neutrophil % 76.5 % (47-70); Platelet Count 252 K/mm3 (150-450); RBC Distribution Width CV 12.6 % (11.6-14.6); RBC Distribution Width SD 42.5 fl (35.1-43.9); Red Blood Count 3.61 M/mm3 (4.6-6.2); White Blood Count 9.6 K/mm3 (4.4-11.0)
[2022-11-07 16:44] LABS: Color, Urine Yellow (Yellow); Glucose, Dipstick Normal (Normal); Ketone-Dipstick Negative (Negative); Leukocyte Esterase-Dipstick 25 /ul (Negative); Nitrite-Dipstick Negative (Negative); Occult Blood-Urine Negative /ul (Negative); Protein-Dipstick 15 mg/dl (Negative); Specific Gravity, Urine 1.015 (1.002-1.030); Urine Bilirubin Dipstick Negative (Negative); Urine Clarity Clear (Clear); Urine Urobilinogen 4 mg/dl (Normal)
[2022-11-07 16:51] LABS: White Blood Cells 0-5 SEEN /hpf (0-5)
[2022-11-07 16:57] VITALS: BP 134/82; PULSE 94; RESP 18; TEMP 36.9; O2SAT 96
[2022-11-07 16:58] LABS: ALB/GLOB Ratio 0.7 RATIO (0.9-2.4); AST(SGOT) 41 U/L (15-37); Alanine Aminotransfer ALT/SGPT 58 U/L (16-61); Albumin, Serum 2.8 g/dL (3.2-5.0); Alkaline Phosphatase 82 U/L (45-117); Anion Gap 7 (5-15); BUN 14 mg/dL (7-18); BUN/Creat Ratio 15.4 RATIO (10-20); Calcium,Total 8.7 mg/dL (8.5-10.1); Chloride 108 mmol/L (98-107); Creatinine, Serum 0.91 mg/dL (0.70-1.30); EST Glomerular Filtration Rate 92 mL/min (>60); Est Glom Filt Rate - Afr Amer 111 mL/min (>60); Estimated Creatinine Clearance 96.54 ml/min; Globulin 3.9 g/dL (2.2-4.2); Glucose 115 mg/dL (74-106); Potassium 3.5 mmol/L (3.5-5.1); Protein, Total 6.7 g/dL (6.4-8.2); Sodium Level 140 mmol/L (136-145)
[2022-11-07 18:00] VITALS: BP 151/88; PULSE 85; RESP 18; TEMP 36.9; O2SAT 95
[2022-11-07 19:00] VITALS: BP 131/87; PULSE 87; RESP 18; TEMP 36.8; O2SAT 97
[2022-11-07 20:08] VITALS: BP 139/77; PULSE 90; RESP 18; O2SAT 100
== END 2022-11-07 20:09 | disposition home or self-care (01) ==
PROVIDERS: Emergency Provider Emergency Medicine; Visit Provider Emergency Medicine
DX: R50.9 Fever, unspecified (principal); I25.10 Atherosclerotic heart disease of native coronary artery without angina pectoris; Z20.822 Contact with and (suspected) exposure to COVID-19; E78.2 Mixed hyperlipidemia; I10 Essential (primary) hypertension
CPT/HCPCS: 71045; 80053; 81001; 83605; 85025; 87040; 87428; 96360; 96361; 99284; J7030; A4216